=== PATIENT | male | born 1955 | race Caucasian/White ===

== ENCOUNTER 2018-06-22 13:57 | Emergency (ER) | payer BC, OTHER ==
[~2018-06-22] VITALS: Ht 182.9 cm; Wt 115.0 kg
[~2018-06-22 13:57] MED LIST: HYDR-3972 PO; LOVA40TA2 PO; MELO-102 PO; METH500T6 PO; MULT-342 PO; OMEG500C PO; TRAM50TA2 PO; VALS40TA2 PO
[2018-06-22] MEDS ORDERED: normal saline 1000ML IV soln IVB ONE (15:35)
[2018-06-22 16:12] LABS: OCCULT BLOOD STOOL NEGATIVE (Neg)
[2018-06-22] MEDS ORDERED: MAGN296S50 PO (16:12)
[2018-06-22] MEDS ORDERED: BISA-155 PO (16:12)
[2018-06-22 16:19] VITALS: BP 137/78
== END 2018-06-22 17:36 | disposition home or self-care (01) ==
LOC: ER 13:57
DX: K59.00 Constipation, unspecified (principal); E11.9 Type 2 diabetes mellitus without complications; Z86.73 Personal history of transient ischemic attack (TIA), and cerebral infarction without residual deficits; Z88.8 Allergy status to other drugs, medicaments and biological substances; Z79.899 Other long term (current) drug therapy; Z98.890 Other specified postprocedural states
CPT/HCPCS: 74018; 82272; 99285; J7030

== ENCOUNTER 2018-11-19 10:46 | Emergency (ER) | payer BC ==
[~2018-11-19] VITALS: Ht 180.3 cm; Wt 117.6 kg
[~2018-11-19 10:46] MED LIST changes: +BISA-155 PO; +MAGN296S50 PO
[2018-11-19] MEDS ORDERED: traMADol 50MG tablet PO ONE (11:10)
--- NOTE | 2018-11-19 11:13 | NUR ---
ADORE CALLED, [facility] WILL BE OUT TO MAKE A REPORT
[2018-11-19] MEDS ORDERED: iohexol 300mg/ml 100ml inj. ONE (12:00)
[2018-11-19] MEDS ORDERED: MESSAGE TO NURSING PO NR (13:00)
[2018-11-19 14:23] VITALS: BP 147/93
== END 2018-11-19 14:32 | disposition home or self-care (01) ==
LOC: ER 10:47
DX: S02.2XXA Fracture of nasal bones, initial encounter for closed fracture (principal); S00.83XA Contusion of other part of head, initial encounter; E11.9 Type 2 diabetes mellitus without complications; Z86.73 Personal history of transient ischemic attack (TIA), and cerebral infarction without residual deficits; Z88.8 Allergy status to other drugs, medicaments and biological substances; Z79.899 Other long term (current) drug therapy; Y04.8XXA Assault by other bodily force, initial encounter; Y93.89 Activity, other specified; Y92.89 Other specified places as the place of occurrence of the external cause; Y99.8 Other external cause status
CPT/HCPCS: 70450; 70486; 70491; 99284; Q9967

== ENCOUNTER 2021-02-23 19:36 | Emergency (ER) | payer BC ==
[~2021-02-23] VITALS: Ht 180.3 cm; Wt 113.6 kg
[~2021-02-23 19:36] MED LIST changes: -MAGN296S50 PO; +MAGN296S70 PO; +METH-797 PO; -METH500T6 PO
--- NOTE | 2021-02-23 21:49 | NUR ---
pt up to br to void and ambulating with steady gait. Vascular US just completed and Dr. Puga talking with pt and reprots he does have some blood clots in the lower right leg. pt with stable vs.
[2021-02-23 22:20] LABS: BASOPHILS # (AUTO) 0.1 X10'3 (0-0.2); BASOPHILS % (AUTO) 1.2 % (0-1); EOSINOPHILS # (AUTO) 0.2 X10'3 (0-0.9); EOSINOPHILS % (AUTO) 2.8 % (0-6); HEMATOCRIT 41.7 % (42.0-52.0); HEMOGLOBIN 14.7 g/dl (14.0-17.9); LYMPHOCYTES # (AUTO) 2.4 X10'3 (1.1-4.8); MEAN CORPUSCULAR HGB CONC 35.3 g/dL (33.0-36.5); MEAN PLATELET VOLUME 7.7 FL (7.4-10.4); MONOCYTES # (AUTO) 0.8 X10'3 (0-0.9); MONOCYTES % (AUTO) 12.1 % (2-12); NEUTROPHILS # (AUTO) 3.1 X10'3 (1.8-7.7); NEUTROPHILS % (AUTO) 46.9 % (42-75); PLATELET COUNT 157 X10'3 (140-440); RED BLOOD COUNT 4.08 X10'6 (4.70-6.10); RED CELL DISTRIBUTION WIDTH 13.4 % (11.5-14.5); WHITE BLOOD COUNT 6.6 X10'3 (4.5-11.0)
[2021-02-23 22:26] LABS: ALBUMIN 3.6 G/DL (3.4-5.0); ANION GAP 8 (8-16); BLOOD UREA NITROGEN 22 MG/DL (7-18); CALCIUM 8.7 MG/DL (8.5-10.1); CHLORIDE 102 MMOL/L (99-107); CREATININE 1.22 MG/DL (0.60-1.10); GLUCOSE 130 MG/DL (70-104); POTASSIUM 3.9 MMOL/L (3.5-5.1); SODIUM 138 MMOL/L (135-145); TOTAL CARBON DIOXIDE 28.3 MMOL/L (24-32); eGFR 60 ML/MIN
[2021-02-23] MEDS ORDERED: APIX5TAB5 PO (22:26)
[2021-02-23] MEDS ORDERED: apixaban 5mg tablet PO SCH (22:42)
[2021-02-23 22:45] VITALS: BP 134/68
== END 2021-02-23 22:51 | disposition home or self-care (01) ==
LOC: ER 19:36
DX: I82.4Z1 Acute embolism and thrombosis of unspecified deep veins of right distal lower extremity (principal); M79.604 Pain in right leg; E11.9 Type 2 diabetes mellitus without complications; Z86.73 Personal history of transient ischemic attack (TIA), and cerebral infarction without residual deficits; Z98.890 Other specified postprocedural states; Z88.8 Allergy status to other drugs, medicaments and biological substances; Z79.899 Other long term (current) drug therapy
CPT/HCPCS: 36415; 80048; 85025; 85610; 93971; 99284

== ENCOUNTER 2023-07-09 08:55 | Emergency (ER) | payer BC ==
[~2023-07-09] VITALS: Ht 180.3 cm; Wt 113.6 kg
[~2023-07-09 08:55] MED LIST changes: +APIX5TAB5 PO; -MAGN296S70 PO; +MAGN296S89 PO
[2023-07-09 09:03] VITALS: TEMP 98.8
[2023-07-09] MEDS ORDERED: lactulose 20gm/30ml cup PO ONE ×2 (10:50→13:45)
[2023-07-09] MEDS ORDERED: normal saline 1000ML IV soln IVB ONE (10:50)
[2023-07-09] MEDS ORDERED: magnesium citrate 296ml oral solution PO ONE (10:50)
--- NOTE | 2023-07-09 11:10 | NUR ---
NILA REQ MAG CITRATE FROM PHARM TO DEL D/T NOT IN OMNICELL.
[2023-07-09 13:16] VITALS: BP 145/98; PULSE 59; RESP 16; O2SAT 96
[2023-07-09] MEDS ORDERED: LACT10SO88 PO (13:44)
--- NOTE | 2023-07-09 13:49 | NUR ---
RN UNABLE TO GET LACTULOSE OUT OF OMNICELL. RN CALLED PHARM AND THEY MADE ADJUSTMENTS. RN WILL ATTEMPT AGAIN.
--- NOTE | 2023-07-09 13:51 | NUR ---
RN PRINTING PT DC PAPERWORK AT THIS TIME.
== END 2023-07-09 14:06 | disposition home or self-care (01) ==
LOC: ER 08:55
DX: K59.00 Constipation, unspecified (principal); E11.9 Type 2 diabetes mellitus without complications; Z85.038 Personal history of other malignant neoplasm of large intestine; Z98.890 Other specified postprocedural states; Z86.73 Personal history of transient ischemic attack (TIA), and cerebral infarction without residual deficits; Z88.8 Allergy status to other drugs, medicaments and biological substances; Z79.899 Other long term (current) drug therapy
CPT/HCPCS: 96360; 99284; J7030

== ENCOUNTER 2023-09-28 09:11 | Day surgery (SDC) | payer BC ==
[2023-09-21 15:56] LABS: BASOPHILS # (AUTO) 0.1 X10'3 (0-0.2); BASOPHILS % (AUTO) 1.2 % (0-1); EOSINOPHILS # (AUTO) 0.1 X10'3 (0-0.9); EOSINOPHILS % (AUTO) 2.2 % (0-6); HEMATOCRIT 41.7 % (42.0-52.0); HEMOGLOBIN 14.7 g/dl (14.0-17.9); LYMPHOCYTES # (AUTO) 2.4 X10'3 (1.1-4.8); LYMPHOCYTES % (AUTO) 40.2 % (21-51); MEAN CORPUSCULAR HEMOGLOBIN 35.8 PG (27.0-31.0); MEAN CORPUSCULAR HGB CONC 35.3 g/dL (33.0-36.5); MEAN CORPUSCULAR VOLUME 101.3 FL (78-98); MEAN PLATELET VOLUME 8.4 FL (7.4-10.4); MONOCYTES # (AUTO) 0.7 X10'3 (0-0.9); MONOCYTES % (AUTO) 12.4 % (2-12); NEUTROPHILS # (AUTO) 2.6 X10'3 (1.8-7.7); PLATELET COUNT 142 X10'3 (140-440); RED BLOOD COUNT 4.11 X10'6 (4.70-6.10); RED CELL DISTRIBUTION WIDTH 13.7 % (11.5-14.5); WHITE BLOOD COUNT 5.9 X10'3 (4.5-11.0)
[2023-09-21 16:04] LABS: ALANINE AMINOTRANSFERASE 70 U/L (12-78); ALBUMIN 3.6 G/DL (3.4-5.0); ALBUMIN/GLOBULIN RATIO 1.1 (1.1-1.5); ALKALINE PHOSPHATASE 94 IU/L (46-116); ANION GAP 7 (8-16); ASPARTATE AMINO TRANSFERASE 32 U/L (10-37); BILIRUBIN,TOTAL 0.4 MG/DL (0.1-1.0); BLOOD UREA NITROGEN 16 MG/DL (7-18); BUN/CREATININE RATIO 13.3 (10.0-20.0); CALCIUM 8.8 MG/DL (8.5-10.1); CHLORIDE 104 MMOL/L (99-107); GLUCOSE 107 MG/DL (70-104); SODIUM 138 MMOL/L (135-145); TOTAL CARBON DIOXIDE 26.6 MMOL/L (24-32); eGFR 60 ML/MIN
[~2023-09-28] VITALS: Ht 177.8 cm; Wt 111.1 kg
[2023-09-28] VITALS (10 sets, daily range): BP systolic 115–149; BP diastolic 69–99; PULSE 57–78; RESP 11–16; TEMP 97.9; O2SAT 95–100
[~2023-09-28 09:11] MED LIST changes: -APIX5TAB5 PO; -BISA-155 PO; +BUPIVAcaine 2.5mg/ml inj 50ml vial (contains preservative) ONE; +CELE200C PO; -HYDR-3972 PO; +LIDOcaine 1% w/EPI 1:100,000 inj. MDV 50 ML VIAL ONE; -LOVA40TA2 PO; -MAGN296S89 PO; -MELO-102 PO; -METH-797 PO; -MULT-342 PO; -TRAM50TA2 PO; +TRAZ-251 PO; -VALS40TA2 PO; +cefazolin 2gm/D5W 100mL 100 ML IV ONE; +famotidine 20mg tablet PO ONE; +ringers solution, lacted 1,000 ML IV SCH
[2023-09-28] MEDS ORDERED: morphine 4 MG/ML inj SYRINge IV PRN (10:00)
[2023-09-28] MEDS ORDERED: labetalol 20mg/4ml (5mg/ml) syringe IV PRN (10:00)
[2023-09-28] MEDS ORDERED: ondansetron/PF 4mg/2ml inj IV PRN (10:00)
[2023-09-28] MEDS ORDERED: morphine 2 MG/ML inj. syringe IV PRN (10:00)
[2023-09-28] MEDS ORDERED: ringers solution, lacted 1,000 ML IV SCH (10:00)
[2023-09-28] MEDS ORDERED: hydrALAZINE 20mg/ml inj. IV PRN (10:00)
[2023-09-28] MEDS ORDERED: fentaNYL/PF 50MCG/1 ML 2ML syringe IV PRN ×2 (10:00)
[2023-09-28] MEDS ORDERED: fentaNYL/PF 50MCG/1 ML 2ML syringe ONE (10:02)
[2023-09-28] MEDS ORDERED: ondansetron/PF 4mg/2ml inj ONE (10:04)
[2023-09-28] MEDS ORDERED: LIDOcaine 2% (20mg/ml) 5ml vial ONE (10:04)
[2023-09-28] MEDS ORDERED: propofol inj 20 ML IV ONE (10:04)
[2023-09-28] MEDS ORDERED: dexamethasone sod phosphate 10mg/ml inj ONE (10:06)
[2023-09-28] MEDS ORDERED: desflurane 240ml liquid inh. IH ONE (10:06)
[2023-09-28] MEDS ORDERED: lidocaine 1%/epinephrine 1:100,000 inj. 50ml multi-dose vial IJ ONE (10:37)
[2023-09-28] MEDS ORDERED: BUPIVAcaine 2.5mg/ml inj 50ml vial (contains preservative) IJ ONE (10:38)
[2023-09-28] MEDS ORDERED: HYDROcodone/acetaminophen 10/325mg tab PO ONE (11:55)
== END 2023-09-28 13:09 | disposition home or self-care (01) ==
LOC: PAS 09:11
PROVIDERS: ATTEND Surgery
DX: C43.59 Malignant melanoma of other part of trunk (principal); R59.0 Localized enlarged lymph nodes; E66.9 Obesity, unspecified; Z68.35 Body mass index [BMI] 35.0-35.9, adult; G47.30 Sleep apnea, unspecified; M19.90 Unspecified osteoarthritis, unspecified site; M10.9 Gout, unspecified; Z98.1 Arthrodesis status; Z96.652 Presence of left artificial knee joint; Z98.890 Other specified postprocedural states; Z85.828 Personal history of other malignant neoplasm of skin; Z85.038 Personal history of other malignant neoplasm of large intestine; Z87.891 Personal history of nicotine dependence; Z88.8 Allergy status to other drugs, medicaments and biological substances; Z79.899 Other long term (current) drug therapy; Z90.49 Acquired absence of other specified parts of digestive tract; Z86.010 Personal history of colon polyps; Z86.718 Personal history of other venous thrombosis and embolism; F15.91 Other stimulant use, unspecified, in remission; Z83.3 Family history of diabetes mellitus
CPT/HCPCS: 11606; 12032; 36415; 38525; 80053; 85025; 93005; J0690; J1100; J2270; J2405; J2704; J3010; J3490; J7030; J7120; Z7506; Z7508; Z7512; A4215; A4615; A4618; A6258; A6449; A7000

== ENCOUNTER 2024-09-07 16:02 | Outpatient (CLI) | payer OTHER ==
[~2024-09-07 16:02] MED LIST changes: -BUPIVAcaine 2.5mg/ml inj 50ml vial (contains preservative) ONE; -LIDOcaine 1% w/EPI 1:100,000 inj. MDV 50 ML VIAL ONE; -cefazolin 2gm/D5W 100mL 100 ML IV ONE; -famotidine 20mg tablet PO ONE; -ringers solution, lacted 1,000 ML IV SCH
== END 2024-09-07 23:59 | disposition home or self-care (01) ==
LOC: RAD 16:02
PROVIDERS: ATTEND Student in an Organized Health Care Education/Training Program
DX: M19.011 Primary osteoarthritis, right shoulder (principal); M79.641 Pain in right hand
CPT/HCPCS: 73200

== ENCOUNTER 2025-01-22 15:11 | Outpatient (CLI) | payer OTHER | END 2025-01-22 23:59 | disposition home or self-care (01) | LOC: MRI02 15:11 | PROVIDERS: ATTEND Student in an Organized Health Care Education/Training Program | DX: M19.041 Primary osteoarthritis, right hand (principal); M79.641 Pain in right hand; W54.0XXA Bitten by dog, initial encounter; R60.0 Localized edema; Y93.89 Activity, other specified; Y92.89 Other specified places as the place of occurrence of the external cause; Y99.8 Other external cause status | CPT/HCPCS: 73218 ==

== ENCOUNTER 2025-07-09 21:44 | Emergency (ER) | payer BC, OTHER ==
[~2025-07-09] VITALS: Ht 180.3 cm; Wt 118.0 kg
[2025-07-09 21:52] VITALS: TEMP 97.9
--- NOTE | 2025-07-09 22:12 | Physician Documentation ---
History of Present Illness ~ Chief Complaint: Leg Pain Stated Complaint: R LEG SWELLING Time Seen by MD: 22:11 Primary Medical Doctor: lupe ROTHMAN HPI Patient presents today with concerns of right lower extremity pain and swelling. He states he has a history of DVT. He states that once he figured out today that has not a muscle strain he took one dose of Eliquis. He denies any chest or shortness of breath Tetanus witin 5 years: No (unsure) Medication Reconciliation Allergies: Coded Allergies: hydromorphone (Verified Allergy, Intermediate, urine retention, 07/17/23) lisinopril (Verified Allergy, Unknown, SWELL THROAT, 09/27/23) Scheduled [place]-3 Fatty Acids (Fish Oil), 2,000 MG PO 1-2X/DAY, (Reported) Scheduled PRN Celecoxib (Celebrex), 1 CAP PO BID PRN for pain, (Reported) Trazodone HCl (Trazodone HCl), 2 TAB PO HS PRN for pain, (Reported) Past Medical History Past Medical History: CVA/TIA/Stroke, Diabetes Past Surgical History: orthopedic surgeries, other Alcohol Use: None Drug Use: none Review of Systems ROS All review of systems negative except as per HPI Physical Exam Vital Signs: Temperature: 97.9, Heart Rate: 77, Respiratory Rate: 16, BP: 152/72, Pulse Oximetry: 95, Weight: 118.000 Oxygen Flow Rate: 0 Physical Exam General: Patient is awake, alert, oriented x4 in no acute distress and well appearing.~ Head: Normocephalic and atraumatic. Eyes: Conjunctival normal. EOMI. PERRL. ENT: Mucous membranes moist. Neck: Supple, trachea is midline. Chest: Clear to auscultation bilaterally without rales, rhonchi, or wheezes. There is no accessory muscle use or retractions. Cardiac: RRR without murmurs, gallops, or rubs. Abd: Soft, nondistended, nontender, with normoactive bowel sounds. No guarding, rebound, or rigidity. Extremities: Pain swelling noted to patient's posterior left ankle. Associated tenderness to palpation Progress Results/Orders Results/Orders Orders - JI FAIRBANKS MD Vl Venous (07/09/25 22:14) Cephalexin Capsule (Keflex Capsule) (07/10/25 00:00) Completed Orders - JI FAIRBANKS MD Vl Venous (07/09/25 22:14) Vital Signs 07/09/25 07/09/25 07/09/25 21:52 23:17 23:25 Temp 97.9 Pulse 77 72 Resp 16 16 16 B/P (MAP) 152/72 135/87 (103) Pulse Ox 95 95 O2 Flow Rate 0 Medical Decision Making Findings Patient presents to the emergency room with pain and swelling to his right lower extremity as per HPI. Differentials include but are not limited to cellulitis, DVT, arthritis, gout, Achilles tendon rupture. Ultrasound reassuring. Possible cellulitis and we will treat him accordingly Departure Disposition: HOME / SELF CARE / HOMELESS Impression: Primary Impression: Cellulitis Condition: Stable Discharge Instructions: Cellulitis, Adult Referrals: NO PRIMARY CARE PROVIDER (PCP) Prescriptions Cephalexin*Monohydrate* (Keflex*) 500 Mg Capsule 1 CAP PO Q12H for 10 Days, #20 CAP Prov: JI FAIRBANKS MD 07/09/25 Signature Scribe Signature: No scribe Attestation: The note accurately reflects work and decisions made by me.Ji Fairbanks MD 07/09/25 23:58 JI FAIRBANKS MD Jul 09, 2025 22:12
--- NOTE | 2025-07-09 23:47 | VASCULAR REPORT ---
Right lower extremity venous duplex Clinical History: Not provided Comparison: None Technique: Duplex Doppler evaluation of the deep venous system of the right lower extremity from the common femoral vein to the popliteal vein including color Doppler and spectral/pulsed waveform analysis was performed. Findings: The common femoral vein demonstrates appropriate compressibility and waveform variability. There is compressibility/patency of the great saphenous vein at the proximal thigh. The femoral vein demonstrates appropriate compressibility and waveform variability. The deep femoral vein demonstrates appropriate compressibility and waveform variability. The popliteal vein demonstrates appropriate compressibility and waveform variability. There is normal compressibility at the tibioperoneal trunk. Small amount of eccentric intraluminal material in the superficial saphenous vein. Impression: 1. No evidence of DVT within the imaged right lower extremity. 2. Nonocclusive filling defect in the superficial saphenous vein.
[2025-07-09] MEDS ORDERED: CEPH-585 PO (23:58)
[2025-07-10 00:34] VITALS: BP 136/80; PULSE 69; RESP 16; O2SAT 95
== END 2025-07-10 00:36 | disposition home or self-care (01) ==
LOC: ER 21:44
DX: L03.115 Cellulitis of right lower limb (principal); E11.9 Type 2 diabetes mellitus without complications; Z86.73 Personal history of transient ischemic attack (TIA), and cerebral infarction without residual deficits; Z86.718 Personal history of other venous thrombosis and embolism; Z88.5 Allergy status to narcotic agent; Z88.8 Allergy status to other drugs, medicaments and biological substances; Z79.899 Other long term (current) drug therapy
CPT/HCPCS: 93971; 99284